=== PATIENT | female | born 2000 | race Caucasian/White ===

== ENCOUNTER → 2023-03-24 | Emergency (ER) | payer BC ==
[~2023-03-24] MED LIST: KETOROLAC 30 MG/ML INJ ONE
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
[2023-03-25 00:43] LABS: Specific Gravity 1.026 (1.005-1.030)
[2023-03-25 00:45] LABS: Specific Gravity 1.026 (1.005-1.030); Urine Bacteria 20-50 /HPF (<20); Urine Bilirubin NEGATIVE (Negative); Urine Blood Negative (Negative); Urine Clarity Extremely Turbid (Clear); Urine Color Yellow (Yellow); Urine Glucose NEGATIVE (Negative); Urine Mucus 2+ /HPF (None Seen); Urine Protein TRACE (Negative); Urine RBC <5 /HPF (None Seen); Urine Urobilinogen Normal (Normal); Urine pH 5.5 (5.0-7.0)
--- NOTE | 2023-03-25 00:49 | EDPHYS ---
Physician Documentation [facility] Name: Claudia Rowland Age: 22 yrs Sex: Female : 2000 Arrival Date: 03/24/2023 Time: 23:47 Bed 6 Private MD: ED Physician Shen Leiva HPI: 03/25 00:11 This 22 yrs old Female presents to ER via Ambulatory with complaints of Flank Pain, Rt kb side pain. 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 States pain is worse with kb movement. Denies urinary symptoms, abd pain, radiated pain. Denies injury or trauma. Historical: - Allergies: 03/24 23:59 No Known Allergies; kl - Home Meds: 23:59 None [Active]; kl - PMHx: 23:59 None; kl - PSHx: 23:59 None; kl - Immunization history:: Flu vaccine is up to date. - Social history:: Smoking status: Reported history of juuling and/or vaping. ROS: 03/25 00:10 Constitutional: Negative for fever, chills, and weight loss, kb Back: Positive for of the right low back, All other systems are negative, Exam: 00:10 Constitutional: This is a well developed, well nourished patient who is awake, alert, kb and in no acute distress. Head/Face: Normocephalic, atraumatic. ENT: Moist Mucous membranes Cardiovascular: Regular rate Respiratory: Respirations even and unlabored. No increased work of breathing. Talking in full sentences Abdomen/GI: Soft, non-tender. No distention Skin: Warm, dry with normal turgor. Normal color. MS/ Extremity: Pulses equal, no cyanosis. Neurovascular intact. Full, normal range of motion. Neuro: Awake and alert, GCS 15, oriented to person, place, time, and situation. Moves all extremities. Normal gait. 00:10 Back: pain, that is mild, of the right low back, CVA tenderness, is absent, Vital Signs: 03/24 23:58 BP 103 / 61; Pulse 81; Resp 20; Temp 97.6(TE); Pulse Ox 100% on R/A; Weight 51.26 kg; kl Height 5 ft. 6 in. ; Pain 8/10; 23:58 Body Mass Index 18.24 (51.26 kg, 167.64 cm) kl 23:58 Pain Scale: Adult kl MDM: 23:54 Patient medically screened. kb 03/25 00:48 Data reviewed: vital signs, nurses notes. kb 00:48 Differential diagnosis: strain, sciatica, UTI, kidney stone. Test considered but Not kb performed: CT: CT stone considered, but pt has no CVA tenderness, no hematuria. Counseling: I had a detailed discussion with the patient and/or guardian regarding the historical points, exam findings, and any diagnostic results supporting the discharge/admit diagnosis, lab results, the need for outpatient follow up, a family practitioner, to return to the emergency department if symptoms worsen or persist or if there are any questions or concerns that arise at home. 03/24 23:57 Order name: Test, Urine; Complete Time: 00:47 kb 03/24 23:57 Order name: Urinalysis w/ reflexes; Complete Time: 00:47 kb Administered Medications: 01:16 Drug: Ketorolac IM 15 mg IM once Route: IM; Site: right deltoid; rv 01:16 Follow up: Response: Medication administered at discharge. rv Disposition Summary: 03/25/23 00:49 Discharge Ordered Notes: Location: Home kb Condition: Stable kb Diagnosis - Low back pain kb - UTI/ Urinary tract infection, site not specified kb Followup: kb - With: Emergency Department - When: As needed - Reason: Worsening of condition Followup: kb - With: Private Physician - When: 2 - 3 days - Reason: Recheck today's complaints, Continuance of care, Re-evaluation by your physician Discharge Instructions: - Discharge Summary Sheet kb - Musculoskeletal Pain kb - Urinary Tract Infection, Adult, [id number] kb Forms: - Medication Reconciliation Form kb - Thank You Letter kb - Antibiotic Education kb - Prescription Opioid Use kb - Patient Portal Instructions kb - Leadership Thank You Letter kb Prescriptions: - Macrobid 100 mg Oral Capsule - take 1 capsule ORAL route every 12 hours for 10 days; 20 capsule; Refills: 0, kb Product Selection Permitted Signatures: Dispatcher [employer] Ade Velazquez FNP-C FNP-Ckb Lewis, Kimberly, RN RN Roque Sanders RN RN rv
--- NOTE | 2023-03-25 00:49 | ER ---
Nurse's Notes [facility] Name: Claudia Rowland Age: 22 yrs Sex: Female : 2000 Arrival Date: 03/24/2023 Time: 23:47 Bed 6 Private MD: Diagnosis: Low back pain;UTI/ Urinary tract infection, site not specified Presentation: 03/24 23:58 Chief complaint: Patient states: right lower back pain x 2 hours denies urinary kl symptoms. Coronavirus screen: Vaccine status: Patient reports being unvaccinated. Ebola Screen: Patient negative for fever greater than or equal to 101.5 degrees Fahrenheit, and additional compatible Ebola Virus Disease symptoms. Initial Sepsis Screen: Does the patient meet any 2 criteria? No. Patient's initial sepsis screen is negative. Does the patient have a suspected source of infection? No. Patient's initial sepsis screen is negative. Risk Assessment: Do you want to hurt yourself or someone else? Patient reports no desire to harm self or others. Onset of symptoms was March 24, 2023 at 22:00. 23:58 Method Of Arrival: Ambulatory kl 23:58 Acuity: TATIANA 3 kl Triage Assessment: 03/25 00:00 General: Appears uncomfortable, Behavior is calm, cooperative. Pain: Complains of pain kl in right low back Pain currently is 8 out of 10 on a pain scale. Historical: - Allergies: 03/24 23:59 No Known Allergies; kl - Home Meds: 23:59 None [Active]; kl - PMHx: 23:59 None; kl - PSHx: 23:59 None; kl - Immunization history:: Flu vaccine is up to date. - Social history:: Smoking status: Reported history of juuling and/or vaping. Screenin/27 00:03 [facility] ED Fall Risk Assessment (Adult) History of falling in the last 3 months, rv including since admission No falls in past 3 months (0 pts) Score/Fall Risk Level 0 - 2 = Low Risk Oriented to surroundings, Maintained a safe environment, Educated pt \T\ family on fall prevention, incl call for assistance when getting out of bed, Assessed \T\ reinforced patient's understanding of fall precautions. Abuse screen: Denies threats or abuse. Denies injuries from another. Nutritional screening: No deficits noted. Tuberculosis screening: No symptoms or risk factors identified. Assessment: 00:03 General: Appears comfortable, Behavior is calm, cooperative. Pain: Complains of pain in rv right low back. Neuro: Level of Consciousness is awake, alert, obeys commands, Oriented to person, place, time, situation. Cardiovascular: Capillary refill < 3 seconds Patient's skin is warm and dry. Respiratory: Airway is patent Respiratory effort is even, unlabored. GI: No signs and/or symptoms were reported involving the gastrointestinal system. : No signs and/or symptoms were reported regarding the genitourinary system. Derm: Skin is healthy with good turgor. Vital Signs: 03/24 23:58 BP 103 / 61; Pulse 81; Resp 20; Temp 97.6(TE); Pulse Ox 100% on R/A; Weight 51.26 kg; kl Height 5 ft. 6 in. ; Pain 8/10; 23:58 Body Mass Index 18.24 (51.26 kg, 167.64 cm) kl 23:58 Pain Scale: Adult ED Course: 23:51 Patient arrived in ED. gm2 23:54 Ade Shea FNP-C is PSYCHIATRICP. kb 23:54 Shen Leiva MD is Attending Physician. kb 23:59 Triage completed. 03/25 00:03 Patient has correct armband on for positive identification. Client placed on continuous rv cardiac and pulse oximetry monitoring. NIBP monitoring applied. 00:03 No provider procedures requiring assistance completed. rv 00:10 Test, Urine Sent. pm6 00:10 Urinalysis w/ reflexes Sent. pm6 01:15 Roque Patel, EDYTA is Primary Nurse. rv 01:16 Patient did not have IV access during this emergency room visit. rv Administered Medications: 01:16 Drug: Ketorolac IM 15 mg IM once Route: IM; Site: right deltoid; rv 01:16 Follow up: Response: Medication administered at discharge. rv Medication: 00:03 VIS not applicable for this client. rv Outcome: 00:49 Discharge ordered by . kb 01:16 Discharged to home ambulatory, rv 01:16 Condition: good 01:16 Discharge instructions given to patient, Instructed on discharge instructions, follow up and referral plans. medication usage, Demonstrated understanding of instructions, follow-up care, medications, Prescriptions given X 1, 01:16 Patient left the ED. rv Signatures: Ade Shea, RELOCATION SERVICES SPECIALIST-C RELOCATION SERVICES SPECIALIST-Ckb Sandrine Lang, RN RN Roque Sanders RN RN rv Mitchell, Ginger 2 [place] pm6
[2023-03-25 07:03] VITALS: BP 103/61; TEMP 97.6; O2SAT 100
== END ==
LOC: ER 23:47
DX: N39.0 Urinary tract infection, site not specified (principal)
CPT/HCPCS: 81001